=== PATIENT | male | born 1980 | race Caucasian/White ===

== ENCOUNTER → 2018-10-16 | Outpatient (CLI) | payer OTHER ==
--- NOTE | 2018-10-16 10:49 | Diagnostic Imaging Report ---
Indication: Right rib injury Three views of the right ribs show no displaced fractures. There are no effusions or pneumothoraces. Impression: Negative right ribs. Dictated by: Dictated on workstation # [id number]
== END ==
LOC: RAD 09:29
PROVIDERS: ATTEND Nurse Practitioner Family
DX: S29.9XXA Unspecified injury of thorax, initial encounter (principal)
CPT/HCPCS: 71100

== ENCOUNTER 2020-04-22 10:43 | Inpatient (IN) | payer BC, OTHER ==
[2020-04-22] VITALS (8 sets, daily range): BP systolic 113–139; BP diastolic 64–80
[~2020-04-22] VITALS: Ht 185 cm; Wt 98.0 kg
--- NOTE | 2020-04-22 11:10 | ED Dyspnea ---
General Stated Complaint: SOB COVID+ History of Present Illness Date Seen by Provider: Apr 22, 2020 Time Seen by Provider: 11:00 Initial Comments 39-year-old male presents with generalized malaise, shortness of breath. Patient is known COVID positive was symptoms starting approximately 7-9 days ago. Patient reports that initially services some headache denies malaise. Had a cough. Reports he was doing well but then last night he developed a fever and increasing shortness of breath today. Patient reports shortness of breath with activity. Patient is currently on steroids from urgent care. Allergies and Home Medications Patient Home Medication List Home Medication List Reviewed: Yes Review of Systems Review of Systems Constitutional: fever, malaise EENTM: no symptoms reported Respiratory: cough, short of breath Cardiovascular: No chest pain, No palpitations Gastrointestinal: No abdominal pain, No nausea, No vomiting Genitourinary: no symptoms reported Musculoskeletal: no symptoms reported Skin: no symptoms reported Psychiatric/Neurological: No Symptoms Reported Endocrine: No Symptoms Reported Past Quzwaxk-Yeaxom-Eozvhk Hx Past Med/Social Hx: Reviewed Nursing Past Med/Soc Hx Physical Exam Vital Signs Vital Signs - First Documented 04/22/20 10:55 Temp 37.0 Pulse 90 Resp 28 B/P (MAP) 136/104 (115) Pulse Ox 95 O2 Delivery Nasal Cannula O2 Flow Rate 2.00 Capillary Refill : Height, Weight, BMI Height: '" Weight: lbs. oz. kg; BMI Method: General Appearance: No Apparent Distress, WD/WN Respiratory: No Accessory Muscle Use, No Respiratory Distress, Decreased Breath Sounds (mild diffuse) Cardiovascular: Regular Rate, Rhythm, No Edema Extremity: Normal Capillary Refill, Normal Inspection, Normal Range of Motion Neurologic/Psychiatric: Alert, Oriented x3, No Motor/Sensory Deficits, Normal Mood/Affect, metal gauge maker II-XII Norm as Tested Skin: Normal Color, Warm/Dry Focused Exam Lactate Level 04/22/20 11:10: Lactic Acid Level 1.85 Lactic Acid Level Laboratory Tests Test 04/22/20 11:10 Lactic Acid Level 1.85 MMOL/L (0.50-2.00) Progress/Results/Core Measures Results/Orders Lab Results Laboratory Tests Test 04/22/20 00:00 04/22/20 11:10 Range/Units Prothrombin Time 12.7 12.2-14.7 SEC INR Comment 0.9 0.8-1.4 Activated Partial Thromboplast Time 23 L 24-35 SEC Fibrinogen 738 H 221-496 MG/DL White Blood Count 14.1 H 4.3-11.0 10^3/uL Red Blood Count 5.13 4.30-5.52 10^6/uL Hemoglobin 15.4 13.3-17.7 g/dL Hematocrit 47 40-54 % Mean Corpuscular Volume 91 80-99 fL Mean Corpuscular Hemoglobin 30 25-34 pg Mean Corpuscular Hemoglobin Concent 33 32-36 g/dL Red Cell Distribution Width 12.1 10.0-14.5 % Platelet Count 197 130-400 10^3/uL Mean Platelet Volume 11.6 9.0-12.2 fL Immature Granulocyte % (Auto) 0 % Neutrophils (%) (Auto) 91 H 42-75 % Lymphocytes (%) (Auto) 5 L 12-44 % Monocytes (%) (Auto) 4 0-12 % Eosinophils (%) (Auto) 0 0-10 % Basophils (%) (Auto) 0 0-10 % Neutrophils # (Auto) 12.8 H 1.8-7.8 10^3/uL Lymphocytes # (Auto) 0.7 L 1.0-4.0 10^3/uL Monocytes # (Auto) 0.6 0.0-1.0 10^3/uL Eosinophils # (Auto) 0.0 0.0-0.3 10^3/uL Basophils # (Auto) 0.0 0.0-0.1 10^3/uL Immature Granulocyte # (Auto) 0.1 0.0-0.1 10^3/uL Neutrophils % (Manual) 88 % Lymphocytes % (Manual) 5 % Monocytes % (Manual) 3 % Eosinophils % (Manual) 0 % Basophils % (Manual) 0 % Band Neutrophils 4 % Blood Morphology Comment NORMAL Sodium Level 134 L 135-145 MMOL/L Potassium Level 4.2 3.6-5.0 MMOL/L Chloride Level 100 98-107 MMOL/L Carbon Dioxide Level 20 L 21-32 MMOL/L Anion Gap 14 5-14 MMOL/L Blood Urea Nitrogen 13 7-18 MG/DL Creatinine 0.94 0.60-1.30 MG/DL Estimat Glomerular Filtration Rate > 60 BUN/Creatinine Ratio 14 Glucose Level 119 H 70-105 MG/DL Lactic Acid Level 1.85 0.50-2.00 MMOL/L Calcium Level 8.9 8.5-10.1 MG/DL Corrected Calcium 8.8 8.5-10.1 MG/DL Total Bilirubin 0.8 0.1-1.0 MG/DL Aspartate Amino Transf (AST/SGOT) 82 H 5-34 U/L Alanine Aminotransferase (ALT/SGPT) 205 H 0-55 U/L Alkaline Phosphatase 102 40-136 U/L Lactate Dehydrogenase 339 H 125-220 U/L C-Reactive Protein High Sensitivity 9.28 H 0.00-0.50 MG/DL Total Protein 7.8 6.4-8.2 GM/DL Albumin 4.1 3.2-4.5 GM/DL My Orders Orders - MARIANN HARKINS DO Vital Signs: Every 4 Hours (Or (04/22/20 11:10) Monitor-Rhythm Ecg Trace Only (04/22/20 11:10) Cbc With Automated Diff (04/22/20 11:10) Comprehensive Metabolic Panel (04/22/20 11:10) Ferritin (04/22/20 11:10) LDH (04/22/20 11:10) Hs C Reactive Protein (04/22/20 11:10) Troponin I (04/22/20 11:10) Lactic Acid Analyzer (04/22/20 11:10) Protime With Inr (04/22/20 11:10) Partial Thromboplastin Time (04/22/20 11:10) Fibrinogen (04/22/20 11:10) Ekg Tracing (04/22/20 11:10) Chest 1 View, Ap/Pa Only (04/22/20 11:10) Oxygen Delivery Set Up (04/22/20 11:10) Oxygen-Administer 07,19 (04/22/20 11:10) Manual Differential (04/22/20 11:10) Procalcitonin (Pct) (04/22/20 12:16) Vital Signs/I&O 04/22/20 10:55 Temp 37.0 Pulse 90 Resp 28 B/P (MAP) 136/104 (115) Pulse Ox 95 O2 Delivery Nasal Cannula O2 Flow Rate 2.00 Progress Progress Note : Time: 12:17 Progress Note Patient is requiring approximate 2 L of oxygen to keep his oxygen saturation in the mid upper 90s. Patient feels signally better while oxygen. We did attempt to wean which is oxygen drawback in the upper 80s low 90s. Patient will be admitted to Dr. Mart due to pneumonia, COVID. We will await pro calcitonin result to determine if antibiotics are warranted. Patient stable upon admission Initial ECG Impression Date: Apr 22, 2020 Initial ECG Impression Time: 11:29 Initial ECG Rate: 88 Initial ECG Rhythm: Normal Sinus Initial ECG Intervals: Normal Initial ECG Impression: Normal Diagnostic Imaging Diagonstic Imaging: Xray Plain Films/CT/US/NM/MRI: chest Comments [facility]. [place], [place] NAME: LOUISA GAYTAN [facility] REC#: [id number] PT STATUS: REG ER : 1980 PHYSICIAN: MARIANN HARKINS DO ADMIT DATE: 04/22/20/ER Draft Date of Exam:04/22/20 CHEST 1 VIEW, AP/PA ONLY INDICATION: Shortness of air. COMPARISON: None FINDINGS: Single frontal radiograph view of the chest was obtained and shows low inspiratory volumes with scattered patchy areas of alveolar opacity, most notable within the right perihilar and left lateral lung field. There is no large effusion or pneumothorax. Cardiac silhouette and pulmonary vasculature are within normal limits. Osseous structures show no gross acute abnormalities. IMPRESSION: 1. Low lung volumes with scattered patchy alveolar opacities concerning for infiltrate. Continued follow-up is advised. Dictated on workstation # [id number] Departure Communication (Admissions) Time/Spoke to Admitting Phy: 12:15 Okay to admit to fourth floor Impression Primary Impression: COVID-19 Additional Impression: Pneumonia Qualified Codes: J18.9 - Pneumonia, unspecified organism Disposition: ADMITTED INPATIENT Condition: Stable Admissions Decision to Admit Reason: Admit from ER (General) Decision to Admit/Date: Apr 22, 2020 Time/Decision to Admit Time: 12:10 Departure-Patient Inst. Referrals: MAHI MENESES MD (PCP/Family) Primary Care Physician MARIANN HARKINS DO Apr 22, 2020 11:10
[2020-04-22 11:31] LABS: BASOPHILS % (AUTO) 0 % (0-10); EOSINOPHILS % (AUTO) 0 % (0-10); HEMATOCRIT 47 % (40-54); HEMOGLOBIN 15.4 g/dL (13.3-17.7); LYMPHOCYTES # (AUTO) 0.7 10^3/uL (1.0-4.0); LYMPHOCYTES % (AUTO) 5 % (12-44); MEAN CORPUSCULAR HEMOGLOBIN 30 pg (25-34); MEAN CORPUSCULAR HGB CONC 33 g/dL (32-36); MEAN CORPUSCULAR VOLUME 91 fL (80-99); MEAN PLATELET VOLUME 11.6 fL (9.0-12.2); MONOCYTES # (AUTO) 0.6 10^3/uL (0.0-1.0); MONOCYTES % (AUTO) 4 % (0-12); NEUTROPHILS # (AUTO) 12.8 10^3/uL (1.8-7.8); NEUTROPHILS % (AUTO) 91 % (42-75); PLATELET COUNT 197 10^3/uL (130-400); WHITE BLOOD COUNT 14.1 10^3/uL (4.3-11.0)
--- NOTE | 2020-04-22 11:37 | Diagnostic Imaging Report ---
INDICATION: Shortness of air. COMPARISON: None FINDINGS: Single frontal radiograph view of the chest was obtained and shows low inspiratory volumes with scattered patchy areas of alveolar opacity, most notable within the right perihilar and left lateral lung field. There is no large effusion or pneumothorax. Cardiac silhouette and pulmonary vasculature are within normal limits. Osseous structures show no gross acute abnormalities. IMPRESSION: 1. Low lung volumes with scattered patchy alveolar opacities concerning for infiltrate. Continued follow-up is advised. Dictated by: Dictated on workstation # [id number]
[2020-04-22] MEDS ORDERED: DEXA6TAB PO (11:41)
[2020-04-22 11:44] LABS: ALBUMIN 4.1 GM/DL (3.2-4.5); CHLORIDE 100 MMOL/L (98-107); POTASSIUM 4.2 MMOL/L (3.6-5.0); SODIUM 134 MMOL/L (135-145)
[2020-04-22 11:45] LABS: CALCIUM 8.9 MG/DL (8.5-10.1)
[2020-04-22 11:46] LABS: GLUCOSE 119 MG/DL (70-105); TOTAL PROTEIN 7.8 GM/DL (6.4-8.2)
[2020-04-22 11:47] LABS: CARBON DIOXIDE 20 MMOL/L (21-32)
[2020-04-22 11:48] LABS: BILIRUBIN,TOTAL 0.8 MG/DL (0.1-1.0)
[2020-04-22 11:50] LABS: ALKALINE PHOSPHATASE 102 U/L (40-136); CREATININE SERUM 0.94 MG/DL (0.60-1.30); GFR ESTIMATED > 60
[2020-04-22 11:51] LABS: BUN/CREATININE RATIO 14
[2020-04-22 11:53] LABS: ALANINE AMINOTRANSFERASE 205 U/L (0-55)
[2020-04-22 11:57] LABS: BAND NEUTROPHILS 4 %; BASOPHILS % (MANUAL) 0 %; EOSINOPHILS % (MANUAL) 0 %; LYMPHOCYTES % (MANUAL) 5 %; MONOCYTES % (MANUAL) 3 %; NEUTROPHILS % (MANUAL) 88 %; RBC MORPH NORMAL
[2020-04-22 12:09] LABS: INR 0.9 (0.8-1.4); PROTHROMBIN TIME PATIENT 12.7 SEC (12.2-14.7)
--- NOTE | 2020-04-22 13:00 | NUR ---
LOUISA GAYTAN admitted to room 430-1, with an admitting diagnosis of covid 19, on 04/22/20 from [place] via [facility] ED via wheelchair, accompanied by staff.LOUISA GAYTAN introduced to surroundings, call light, bed controls, phone, TV, temperature control, lights, meal times, smoking policy, visitor policy, side rail policy, bathrooms and showers. Patient Rights given to patient in the handbook. LOUISA GAYTAN verbalizes understanding that [facility] is not responsible for the loss or damage to any personal effects or valuables that are kept in the patients posession during their hospitalization.
[2020-04-22] MEDS ORDERED: ACETAMINOPHEN 500 MG TAB (TYLENOL) PO PRN (13:15)
[2020-04-22] MEDS ORDERED: CATHETER FLUSH 10 ML SYR IV PRN (13:15)
--- NOTE | 2020-04-22 13:59 | History & Physical-Hospitalist ---
History of Present Illness HPI/Chief Complaint Pt is 39yoCM who presented to the ER due to ER due to chest tightness and shortness of breath. He developed a fever last week and had COVID testing done which was positive. He had been doing ok at home until two days ago when he developed worsening chest tightness. he is currently on day 7-8 of symptoms. He was started on decadron on 04/16 but continued to worsen. Arrival to the ER he was found to be hypoxic a 89% at rest. He is being admitted for hypoxic from COVID19. Source: patient Date Seen 04/22/20 Time Seen by a Provider: 13:47 Attending Physician Tara Kang MD PCP Veronica Preciado MD Referring Physician Date of Admission Apr 22, 2020 at 12:00 Home Medications & Allergies Home Medications Reviewed patient Home Medication Reconciliation performed by pharmacy medication reconciliations aerospace physiological technician and/or nursing. Patients Allergies have been reviewed. Allergies Allergies Coded Allergies No Known Drug Allergies ([id number]/17/20) Past Payessy-Gkixbi-Kzxlvu Hx Past Med/Social Hx: Reviewed Nursing Past Med/Soc Hx Patient Social History Marrital Status: Alcohol Use: Denies Use Recreational Drug Use: No Smoking Status: Never a Smoker Recent Foreign Travel: No Contact w/other who traveled: No Recent Hopitalizations: No Recent Infectious Disease Expo: No Immunizations Up To Date Date of Influenza Vaccine: Mar 06, 2020 Seasonal Allergies Seasonal Allergies: No Past Medical History History of Blood Disorders: No Family History Reviewed Nursing Family Hx No Pertinent Family Hx Review of Systems Constitutional: fever, malaise EENTM: no symptoms reported Respiratory: cough, short of breath Cardiovascular: no symptoms reported Gastrointestinal: no symptoms reported Genitourinary: no symptoms reported Musculoskeletal: no symptoms reported Skin: no symptoms reported Psychiatric/Neurological: No Symptoms Reported Physical Exam Physical Exam Vital Signs Vital Signs - First Documented 04/22/20 10:55 Temp 37.0 Pulse 90 Resp 28 B/P (MAP) 136/104 (115) Pulse Ox 95 O2 Delivery Nasal Cannula O2 Flow Rate 2.00 Capillary Refill : Less Than 3 Seconds Height, Weight, BMI Height: '" Weight: lbs. oz. kg; 28.63 BMI Method: General Appearance: No Apparent Distress, WD/WN HEENT: PERRL/EOMI, Moist Mucous Membranes; No Scleral Icterus (L), No Scleral Icterus (R) Neck: Normal Inspection, Supple Respiratory: Lungs Clear, No Accessory Muscle Use, Other (on 2lpm NC) Cardiovascular: Regular Rate, Rhythm, No Murmur Gastrointestinal: Normal Bowel Sounds, Non Tender, Soft Extremity: Normal Capillary Refill, No Calf Tenderness, No Pedal Edema Neurologic/Psychiatric: Alert, Oriented x3, Normal Mood/Affect Skin: Normal Color, Warm/Dry Results Results/Procedures Labs Laboratory Tests 04/22/20 11:10 04/23/20 05:15 Patient resulted labs reviewed. Imaging: Reviewed Imaging Report Imaging [facility]. [place], [place] NAME: LOUISA GAYTAN [facility] REC#: [id number] PT STATUS: REG ER : 1980 PHYSICIAN: MARIANN HARKINS DO ADMIT DATE: 04/22/20/ER Draft Date of Exam:04/22/20 CHEST 1 VIEW, AP/PA ONLY INDICATION: Shortness of air. COMPARISON: None FINDINGS: Single frontal radiograph view of the chest was obtained and shows low inspiratory volumes with scattered patchy areas of alveolar opacity, most notable within the right perihilar and left lateral lung field. There is no large effusion or pneumothorax. Cardiac silhouette and pulmonary vasculature are within normal limits. Osseous structures show no gross acute abnormalities. IMPRESSION: 1. Low lung volumes with scattered patchy alveolar opacities concerning for infiltrate. Continued follow-up is advised. Dictated on workstation # [id number] Dict: 04/22/20 1132 Trans: 04/22/20 1136 [id number] Interpreted by: WARD REAVES MD Electronically signed by: Assessment/Plan Admission Diagnosis Acute hypoxic respiratory failure from COVID19 Admission Status: Inpatient Order (span 2 midnights) Reason for Inpatient Admission: see below Assessment and Plan Acute hypoxic respiratory failure from COVID19 Transaminitis Currently on 2lpm to maintain oxygen saturation Within window for remdesivir so will start and monitor liver function but within threshold Decadron Convalescent plasma, discussed EUA status and patient agreeable Lovenox IS Procal negative so no indication for abx DVT ppx: Lovenox Diagnosis/Problems Diagnosis/Problems (1) Acute respiratory failure Qualifiers: Respiratory failure complication: hypoxia Qualified Codes: J96.01 - Acute respiratory failure with hypoxia (2) Transaminitis Status: Acute (3) COVID-19 Status: Acute Clinical Quality Measures DVT/VTE Risk/Contraindication: RFS Level Per Nursing on Admit: 0=No Risk/No VTE PPX TARA KANG MD Apr 22, 2020 13:59
[2020-04-22] MEDS ORDERED: MILK OF MAGNESIA 400 MG/5 ML 30 ML UDC PO PRN (14:00)
[2020-04-22] MEDS ORDERED: REMDESIVIR INJ 200 MG in NS (IVPB) 210 ML IV NR (14:00)
[2020-04-22] MEDS ORDERED: ANTACID SUSP 30 ML UDC (MYLANTA) PO PRN (14:00)
[2020-04-22] MEDS ORDERED: BENZONATATE 100 MG (TESSALON) CAPSULE PO PRN (14:00)
[2020-04-22] MEDS ORDERED: ONDANSETRON 4 MG/2 ML (SDV) Z0FRAN IV PRN (14:00)
[2020-04-22] MEDS: CATHETER FLUSH 10 ML SYR IV SCH ×2 (15:19→21:57)
[2020-04-22] MEDS: ENOXAPARIN 40 MG/0.4 ML (LOVENOX) SYR SQ SCH (15:19)
[2020-04-22] MEDS ORDERED: CHOL10007 PO (15:23)
[2020-04-22] MEDS ORDERED: ASCO500C17 PO (15:23)
[2020-04-22] MEDS ORDERED: ZINC50TA58 PO (15:23)
[2020-04-22] MEDS ORDERED: ACET-2267 PO (15:23)
--- NOTE | 2020-04-22 15:24 | NUR ---
SPOKE WITH THE PT (CALLED THE ROOM PHONE) AND WENT THRU THE EXT MED HISTORY TO COMPLETE THE MED REC ACCORDING TO THE PT HE NORMALLY DOESNT TAKE ANY PRESCRIPTION MEDICATIONS, BUT IS CURRENTLY TAKING DEXAMETHASONE 6MG DUE TO COVID OTC MEDS: TYLENOL VIT D VIT C ZINC
[2020-04-22] MEDS ORDERED: NS IV 500 ML 500 ML ONE (16:06)
--- NOTE | 2020-04-22 18:40 | NUR ---
Upon entering patients room to assess status and DC plasma patient is breathing rapidly. He states he is worried he is going to get really bad tonight like he has the last few. Patient has been laying in bed staring at the ceiling since admission. I assure patient that we will take good care of him. Informed Dr. Mart of patients status. orders Hydroxyzine 10mg PO TID PRN for anxiety. Order placed at this time.
[2020-04-22] MEDS: MELATONIN 3 MG TABLET PO PRN (20:40)
[2020-04-22] MEDS: ACETAMINOPHEN 325 MG TABLET PO PRN (20:41)
[2020-04-22] MEDS: hydrOXYzine (VISTARIL/ATARAX) 25 MG capsule/tablet PO PRN (20:41)
[2020-04-23] VITALS: BP 109/67
[2020-04-23 03:45] VITALS: BP 113/74
[2020-04-23] MEDS: CATHETER FLUSH 10 ML SYR IV SCH ×3 (05:28→22:07)
[2020-04-23 06:08] LABS: HEMOGLOBIN 13.8 g/dL (13.3-17.7); WHITE BLOOD COUNT 11.4 10^3/uL (4.3-11.0)
[2020-04-23 06:15] LABS: ALBUMIN 3.8 GM/DL (3.2-4.5); CHLORIDE 100 MMOL/L (98-107); POTASSIUM 4.4 MMOL/L (3.6-5.0); SODIUM 136 MMOL/L (135-145)
[2020-04-23 06:17] LABS: CALCIUM 8.9 MG/DL (8.5-10.1)
[2020-04-23 06:18] LABS: GLUCOSE 109 MG/DL (70-105); TOTAL PROTEIN 7.1 GM/DL (6.4-8.2)
[2020-04-23 06:19] LABS: CARBON DIOXIDE 23 MMOL/L (21-32)
[2020-04-23 06:20] LABS: BILIRUBIN,TOTAL 0.7 MG/DL (0.1-1.0)
[2020-04-23 06:21] LABS: ALKALINE PHOSPHATASE 105 U/L (40-136); CREATININE SERUM 0.85 MG/DL (0.60-1.30); GFR ESTIMATED > 60
[2020-04-23 06:22] LABS: BUN/CREATININE RATIO 19
[2020-04-23 06:24] LABS: ALANINE AMINOTRANSFERASE 191 U/L (0-55)
[2020-04-23 08:00] VITALS: BP 112/72
--- NOTE | 2020-04-23 08:57 | Physician Query Clarification ---
PQ-Conflicting Diagnosis Admission/Discharge Admission Date: Apr 22, 2020 at 12:00 Discharge Date: Dr. Mart, The medical record reflects the following clinical scenario: History/Risk Factors: COVID 19 Acute respiratory failure with hypoxia. Clinical Findings: 04/22 chest xray Impression: Low lung volumes with scattered patchy alveolar opacities concerning for infiltrates. Treatment:Remdesivir 200mg, IV Sodium chloride, Tessalon Perles. Question: Do you agree with the impression of the Pneumonia per Sammy Oliver DO, ED physician? If agree, is pneumonia, viral related to COVID 19? Please document a response in Progress Note or Discharge Summary. 1. Yes 2. No 3. Other, with explanation of clinical findings 4. Clinically undetermined, no explanation for clinical findings. PHYSICIAN RESPONSE Do you agree w/Consulting Dx?: Yes Please remember a lack of response to the above will prompt a phone page by CDI/Coding staff. In responding to this query, please exercise your independent professional judgment. The purpose of this communication is to more accurately reflect the complexity of your patients condition. The fact that a question is asked does not imply that any particular answer is desired or expected. Thank you for your timely response to this clarification. Requestors name: Devorah Logan [facility] THIS PHYSICIAN QUERY FORM IS A PERMANENT PART OF THE MEDICAL RECORD DEVORAH LOGAN Apr 23, 2020 08:57 TARA MART MD Apr 23, 2020 16:37
--- NOTE | 2020-04-23 09:52 | Progress Note - Hospitalist ---
Subjective HPI/CC On Admission Date Seen by Provider: Apr 23, 2020 Time Seen by Provider: 09:47 Pt is 39yoCM who presented to the ER due to ER due to chest tightness and shortness of breath. He developed a fever last week and had COVID testing done which was positive. He had been doing ok at home until two days ago when he developed worsening chest tightness. he is currently on day 7-8 of symptoms. He was started on decadron on 04/16 but continued to worsen. Arrival to the ER he was found to be hypoxic a 89% at rest. He is being admitted for hypoxic from COVID19. Subjective/Events-last exam Pt reports having a rough night due to recurrent fever. Now has some nasal bleeding from NC. Encourage OOB activity today. Focused Exam Lactate Level 04/22/20 11:10: Lactic Acid Level 1.85 Objective Exam Vital Signs Vital Signs Date Time Temp Pulse Resp B/P (MAP) Pulse Ox O2 Delivery O2 Flow Rate FiO2 04/23/20 08:41 94 Nasal Cannula 3.00 04/23/20 03:45 36.3 74 18 113/74 (87) Capillary Refill : Less Than 3 Seconds General Appearance: No Apparent Distress, WD/WN Respiratory: Lungs Clear, No Respiratory Distress Cardiovascular: Regular Rate, Rhythm, No Murmur Results/Procedures Lab Laboratory Tests 04/22/20 11:10 04/23/20 05:15 Patient resulted labs reviewed. Imaging: Reviewed Imaging Report Assessment/Plan Assessment and Plan Assess & Plan/Chief Complaint Acute hypoxic respiratory failure from COVID19 Transaminitis- improving Currently on 3lpm, wean as able Continue Remdesivir, decadron s/p 1 unit Convalescent plasma Lovenox IS Procal negative so no indication for abx Encourage OOB activity Discussed with RN and will use oxygen safe ointment for nose to lubricate it DVT ppx: Lovenox Diagnosis/Problems Diagnosis/Problems (1) Acute respiratory failure Qualifiers: Respiratory failure complication: hypoxia Qualified Codes: J96.01 - Acute respiratory failure with hypoxia (2) Transaminitis Status: Acute (3) COVID-19 Status: Acute Clinical Quality Measures DVT/VTE Risk/Contraindication: RFS Level Per Nursing on Admit: 0=No Risk/No VTE PPX TARA KANG MD Apr 23, 2020 09:52
[2020-04-23 12:00] VITALS: BP 111/72
[2020-04-23] MEDS: ENOXAPARIN 40 MG/0.4 ML (LOVENOX) SYR SQ SCH (14:38)
[2020-04-23] MEDS: REMDESIVIR INJ 100 MG in NS (IVPB) 230 ML IV SCH (14:38)
[2020-04-23 16:02] VITALS: BP 114/73
[2020-04-23 19:32] VITALS: BP 117/74
[2020-04-23] MEDS: ACETAMINOPHEN 325 MG TABLET PO PRN (21:38)
[2020-04-24] VITALS: BP 107/67
[2020-04-24 03:59] VITALS: BP 113/77
[2020-04-24] MEDS: CATHETER FLUSH 10 ML SYR IV SCH ×3 (06:01→20:44)
[2020-04-24 06:36] LABS: HEMOGLOBIN 14.1 g/dL (13.3-17.7); MEAN PLATELET VOLUME 11.1 fL (9.0-12.2); WHITE BLOOD COUNT 5.9 10^3/uL (4.3-11.0)
[2020-04-24 06:46] LABS: ALANINE AMINOTRANSFERASE 137 U/L (0-55); ALBUMIN 3.7 GM/DL (3.2-4.5); ALKALINE PHOSPHATASE 103 U/L (40-136); BILIRUBIN,TOTAL 0.6 MG/DL (0.1-1.0); BUN/CREATININE RATIO 24; CALCIUM 9.2 MG/DL (8.5-10.1); CARBON DIOXIDE 23 MMOL/L (21-32); CHLORIDE 102 MMOL/L (98-107); CREATININE SERUM 0.89 MG/DL (0.60-1.30); GFR ESTIMATED > 60; GLUCOSE 85 MG/DL (70-105); POTASSIUM 4.1 MMOL/L (3.6-5.0); SODIUM 138 MMOL/L (135-145)
[2020-04-24 08:00] VITALS: BP 133/72
--- NOTE | 2020-04-24 10:17 | Progress Note - Hospitalist ---
Subjective HPI/CC On Admission Date Seen by Provider: Apr 24, 2020 Time Seen by Provider: 10:16 Pt is 39yoCM who presented to the ER due to ER due to chest tightness and shortness of breath. He developed a fever last week and had COVID testing done which was positive. He had been doing ok at home until two days ago when he developed worsening chest tightness. he is currently on day 7-8 of symptoms. He was started on decadron on 04/16 but continued to worsen. Arrival to the ER he was found to be hypoxic a 89% at rest. He is being admitted for hypoxic from COVID19. Subjective/Events-last exam Pt reports feeling much better. No further fever. Up in chair. Focused Exam Lactate Level 04/22/20 11:10: Lactic Acid Level 1.85 Objective Exam Vital Signs Vital Signs Date Time Temp Pulse Resp B/P (MAP) Pulse Ox O2 Delivery O2 Flow Rate FiO2 04/24/20 09:05 93 Nasal Cannula 2.50 04/24/20 08:00 36.7 62 20 133/72 (92) Capillary Refill : Less Than 3 Seconds General Appearance: No Apparent Distress, WD/WN Respiratory: Lungs Clear, No Accessory Muscle Use, Other (on 2.5lpm) Cardiovascular: Regular Rate, Rhythm, No Murmur Gastrointestinal: Normal Bowel Sounds, Non Tender, Soft Neurologic/Psychiatric: Alert, Oriented x3 Results/Procedures Lab Laboratory Tests 04/24/20 05:45 Patient resulted labs reviewed. Imaging: Reviewed Imaging Report Assessment/Plan Assessment and Plan Assess & Plan/Chief Complaint Acute hypoxic respiratory failure from COVID19- improving Transaminitis- improving Currently on 2.5lpm, wean as able Continue Remdesivir, decadron s/p 1 unit Convalescent plasma Lovenox IS Procal negative so no indication for abx Encourage OOB activity DVT ppx: Lovenox Diagnosis/Problems Diagnosis/Problems (1) Acute respiratory failure Qualifiers: Respiratory failure complication: hypoxia Qualified Codes: J96.01 - Acute respiratory failure with hypoxia (2) Transaminitis Status: Acute (3) COVID-19 Status: Acute Clinical Quality Measures DVT/VTE Risk/Contraindication: RFS Level Per Nursing on Admit: 0=No Risk/No VTE PPX TARA KANG MD Apr 24, 2020 10:17
[2020-04-24 12:00] VITALS: BP 113/72
[2020-04-24] MEDS: REMDESIVIR INJ 100 MG in NS (IVPB) 230 ML IV SCH (13:25)
[2020-04-24] MEDS: ENOXAPARIN 40 MG/0.4 ML (LOVENOX) SYR SQ SCH (13:25)
[2020-04-24 16:00] VITALS: BP 111/74
[2020-04-24 20:00] VITALS: BP 117/72
[2020-04-24] MEDS: ACETAMINOPHEN 325 MG TABLET PO PRN (20:42)
[2020-04-24] MEDS: hydrOXYzine (VISTARIL/ATARAX) 25 MG capsule/tablet PO PRN (20:43)
[2020-04-24] MEDS: MELATONIN 3 MG TABLET PO PRN (20:43)
[2020-04-25] VITALS (7 sets, daily range): BP systolic 109–133; BP diastolic 63–75
[2020-04-25] MEDS: CATHETER FLUSH 10 ML SYR IV SCH ×3 (06:28→20:32)
[2020-04-25 06:40] LABS: HEMOGLOBIN 14.5 g/dL (13.3-17.7); WHITE BLOOD COUNT 5.6 10^3/uL (4.3-11.0)
[2020-04-25 06:51] LABS: ALBUMIN 3.7 GM/DL (3.2-4.5); CHLORIDE 103 MMOL/L (98-107); POTASSIUM 4.2 MMOL/L (3.6-5.0); SODIUM 138 MMOL/L (135-145)
[2020-04-25 06:53] LABS: CALCIUM 8.9 MG/DL (8.5-10.1)
[2020-04-25 06:54] LABS: GLUCOSE 92 MG/DL (70-105); TOTAL PROTEIN 7.2 GM/DL (6.4-8.2)
[2020-04-25 06:55] LABS: CARBON DIOXIDE 23 MMOL/L (21-32)
[2020-04-25 06:56] LABS: BILIRUBIN,TOTAL 0.5 MG/DL (0.1-1.0)
[2020-04-25 06:57] LABS: ALKALINE PHOSPHATASE 97 U/L (40-136)
[2020-04-25 06:58] LABS: CREATININE SERUM 0.94 MG/DL (0.60-1.30); GFR ESTIMATED > 60
[2020-04-25 06:59] LABS: BUN/CREATININE RATIO 21
[2020-04-25 07:00] LABS: ALANINE AMINOTRANSFERASE 103 U/L (0-55)
[2020-04-25] MEDS: ACETAMINOPHEN 325 MG TABLET PO PRN (11:47)
--- NOTE | 2020-04-25 12:07 | NUR ---
RT NOTIFIED OF MAT ORDER.
[2020-04-25] MEDS ORDERED: RT-ALBUTEROL INHALER HFA (VENTOLIN HFA) 18 GM IH PRN (12:45)
--- NOTE | 2020-04-25 13:41 | Progress Note - Hospitalist ---
Subjective HPI/CC On Admission Date Seen by Provider: Apr 25, 2020 Time Seen by Provider: 13:39 Pt is 39yoCM who presented to the ER due to ER due to chest tightness and shortness of breath. He developed a fever last week and had COVID testing done which was positive. He had been doing ok at home until two days ago when he developed worsening chest tightness. he is currently on day 7-8 of symptoms. He was started on decadron on 04/16 but continued to worsen. Arrival to the ER he was found to be hypoxic a 89% at rest. He is being admitted for hypoxic from COVID19. Subjective/Events-last exam Pt reports feeling short of breath still. Oxygen sats running in the high 90s but feels SOB without it. Encouraged continue OOB activity and IS use. Today [birth year] his birthday. Objective Exam Vital Signs Vital Signs Date Time Temp Pulse Resp B/P (MAP) Pulse Ox O2 Delivery O2 Flow Rate FiO2 04/25/20 13:10 96 Nasal Cannula 3.00 04/25/20 12:36 36.7 62 28 04/25/20 12:00 18 113/72 (86) Capillary Refill : Less Than 3 Seconds General Appearance: No Apparent Distress, WD/WN Respiratory: Lungs Clear, Other (on 3lpm) Cardiovascular: Regular Rate, Rhythm, No Murmur Gastrointestinal: Normal Bowel Sounds, Non Tender, Soft Neurologic/Psychiatric: Alert, Oriented x3 Results/Procedures Lab Laboratory Tests 04/25/20 06:18 Patient resulted labs reviewed. Imaging: Reviewed Imaging Report Assessment/Plan Assessment and Plan Assess & Plan/Chief Complaint Acute hypoxic respiratory failure from COVID19- improving Transaminitis- improving Currently on 3lpm, wean as able Continue Remdesivir, decadron s/p 1 unit Convalescent plasma Lovenox IS Procal negative so no indication for abx Encourage OOB activity D-dimer negative today DVT ppx: Lovenox Diagnosis/Problems Diagnosis/Problems (1) Acute respiratory failure Qualifiers: Respiratory failure complication: hypoxia Qualified Codes: J96.01 - Acute respiratory failure with hypoxia (2) Transaminitis Status: Acute (3) COVID-19 Status: Acute Clinical Quality Measures DVT/VTE Risk/Contraindication: RFS Level Per Nursing on Admit: 0=No Risk/No VTE PPX TARA KANG MD Apr 25, 2020 13:41
[2020-04-25] MEDS: ENOXAPARIN 40 MG/0.4 ML (LOVENOX) SYR SQ SCH (14:33)
[2020-04-25] MEDS: REMDESIVIR INJ 100 MG in NS (IVPB) 230 ML IV SCH (14:34)
[2020-04-25] MEDS ORDERED: guaiFENesin/CODEINE (ROBITUSSIN AC) 10ML UDC PO PRN (18:30)
[2020-04-25] MEDS: RT-ALBUTEROL INHALER HFA (VENTOLIN HFA) 18 GM IH SCH (20:12)
[2020-04-25] MEDS: MELATONIN 3 MG TABLET PO PRN (20:31)
[2020-04-26 00:28] VITALS: BP 116/70
[2020-04-26] MEDS: RT-ALBUTEROL INHALER HFA (VENTOLIN HFA) 18 GM IH SCH ×2 (02:04→09:00)
[2020-04-26 04:52] VITALS: BP 114/72
[2020-04-26] MEDS: CATHETER FLUSH 10 ML SYR IV SCH ×2 (06:05→13:40)
[2020-04-26 06:35] LABS: HEMOGLOBIN 14.9 g/dL (13.3-17.7); MEAN PLATELET VOLUME 10.5 fL (9.0-12.2); WHITE BLOOD COUNT 6.5 10^3/uL (4.3-11.0)
[2020-04-26 06:46] LABS: ALBUMIN 3.8 GM/DL (3.2-4.5); CHLORIDE 104 MMOL/L (98-107); POTASSIUM 4.4 MMOL/L (3.6-5.0); SODIUM 140 MMOL/L (135-145)
[2020-04-26 06:47] LABS: CALCIUM 8.9 MG/DL (8.5-10.1)
[2020-04-26 06:48] LABS: GLUCOSE 98 MG/DL (70-105); TOTAL PROTEIN 7.3 GM/DL (6.4-8.2)
[2020-04-26 06:49] LABS: CARBON DIOXIDE 22 MMOL/L (21-32)
[2020-04-26 06:50] LABS: BILIRUBIN,TOTAL 0.5 MG/DL (0.1-1.0)
[2020-04-26 06:52] LABS: ALKALINE PHOSPHATASE 95 U/L (40-136); CREATININE SERUM 0.94 MG/DL (0.60-1.30); GFR ESTIMATED > 60
[2020-04-26 06:53] LABS: BUN/CREATININE RATIO 17
[2020-04-26 06:55] LABS: ALANINE AMINOTRANSFERASE 96 U/L (0-55)
[2020-04-26 07:40] VITALS: BP 108/60
--- NOTE | 2020-04-26 08:30 | NUR ---
PATIENT DECREASED FROM 3L TO 1L. SPO2 97%@ 1L VIA NC. DENIES C/O. STATES, " I FEEL A LOT BETTER TODAY." DECREASE AERATION NOTED IN RIGHT LOBE. PATIENT ACCURATELY CORRECT DEMONSTRATION OF I.S. USE AND VERBALIZES DOING ON OWN EVERY HOUR. DENIES NNEDS OR C/O AT THIS TIME. CONT TO MONITOR.
--- NOTE | 2020-04-26 09:10 | NUR ---
SPO2 96% ON 1L O2 VIA NC. CONT TO MONITOR. NO NEEDS OR C/O AT THIS TIME.
[2020-04-26 11:10] VITALS: BP 125/73
[2020-04-26] MEDS ORDERED: ALBU18HF2 IH (11:19)
--- NOTE | 2020-04-26 11:25 | Discharge Inst-Simple/Standard ---
Discharge Inst-Standard Patient Instructions/Follow Up Plan of Care/Instructions/FU: Please continue to take your medications as written. Please follow up with your primary care doctor to follow up this hospital stay. Activity as Tolerated: Yes Discharge Diet: No Restrictions Return to The Hospital For: Chest pain, shortness of breath, abdominal pain, fever, difficulty breathing, if you feel you are getting worse. TARA KANG MD Apr 26, 2020 11:25
--- NOTE | 2020-04-26 11:36 | Discharge Summary ---
Diagnosis/Chief Complaint Date of Admission Apr 22, 2020 at 12:00 Date of Discharge Discharge Date: Apr 26, 2020 Admission Diagnosis Acute hypoxic respiratory failure from COVID19 Primary Care Mahi Preciado MD Discharge Diagnosis (1) Acute respiratory failure (2) Transaminitis Status: Acute (3) COVID-19 Status: Acute Discharge Summary Discharge Physical Exam Allergies: Coded Allergies: No Known Drug Allergies (Unverified , 04/22/20) Vitals & I&Os Vital Signs Date Time Temp Pulse Resp B/P (MAP) Pulse Ox O2 Delivery O2 Flow Rate FiO2 04/26/20 15:57 36.4 100 18 125/73 92 Room Air 04/26/20 11:10 1.00 04/25/20 12:36 28 General Appearance: No Apparent Distress, WD/WN Respiratory: Lungs Clear; No Crackles, No Wheezing Cardiovascular: Regular Rate, Rhythm, No Murmur Gastrointestinal: Normal Bowel Sounds, Soft Neurologic/Psychiatric: Alert, Oriented x3 Hospital Course Patient was admitted with acute hypoxic respiratory failure due to COVID-19. He was treated with Decadron, convalescent plasma, and Remdesivir. He did well and was able to be titrated off of oxygen completely. he was discharged home in stable and improved condition to follow-up with his primary care provider. Labs (last 24 hrs) Patient resulted labs reviewed. Pending Labs Imaging: Reviewed Imaging Report Discussion & Recommendations Discharge Planning: >30 minutes discharge planning Discharge Home Medications: Active Scripts Active Ventolin Hfa (Albuterol Sulfate) 18 Gm Hfa.aer.ad 0 Gm IH RTQ6HR Reported Vitamin D3 (Cholecalciferol (Vitamin D3)) 25 Mcg Capsule 25 Mcg PO DAILY Vitamin C (Ascorbic Acid) 500 Mg Capsule 500 Mg PO DAILY Zinc 50 Mg Tablet 50 Mg PO DAILY Tylenol Extra Strength (Acetaminophen) 500 Mg Tablet 500-1,000 Mg PO Q8H PRN Dexamethasone 6 Mg Tablet 6 Mg PO DAILY Instructions to patient/family Please see electronic discharge instructions given to patient. Clinical Quality Measures DVT/VTE Risk/Contraindication: RFS Level Per Nursing on Admit: 0=No Risk/No VTE PPX Copy Copies To 1: MAHI PRECIADO MD Problem Qualifiers (1) Acute respiratory failure: Respiratory failure complication: hypoxia Qualified Codes: J96.01 - Acute respiratory failure with hypoxia TARA KANG MD Apr 26, 2020 11:36
--- NOTE | 2020-04-26 13:18 | NUR ---
PATIENT WALKED 240 FEET ON ROOM AIR SAT 92% HEART RATE 110 DID NOT NEED OXYGEN AT THIS TIME Addendum: 04/26/20 at 1318 by JOSE MARQUEZ RT Amended: Links added.
[2020-04-26] MEDS: ENOXAPARIN 40 MG/0.4 ML (LOVENOX) SYR SQ SCH (13:40)
[2020-04-26] MEDS: REMDESIVIR INJ 100 MG in NS (IVPB) 230 ML IV SCH (13:40)
[2020-04-26 15:31] VITALS: BP 125/73
--- NOTE | 2020-04-26 15:31 | NUR ---
LOUISA GAYTAN demonstrates understanding of discharge instructions and accurately returns instructions upon questioning. Copy of Post-Discharge Instructions and Medication Discharge Instructions given to PATIENT. LOUISA GAYTAN is not able to manage continuing needs after discharge. Patients belongings returned to PATIENT. Skin dry and intact; no breakdown noted. Patient discharged from [facility] on 04/26/20 at 1531. LOUISA GAYTAN left floor via WC, accompanied by STAFF. Sp02 taken prior to d/c 88% and rebounded to 92% with deep breaths . Dr pro notified and patietn is still ok to be d/juan a. patient is asymptomatic and no SOA noted with exertion.
[2020-04-26 15:57] VITALS: BP 125/73
== END 2020-04-26 15:35 | disposition home or self-care (01) | DRG 177 ==
LOC: EDUNIT# 10:43 → ER 10:46 → 4TH 12:00
PROVIDERS: ADMIT Family Medicine; ATTEND Family Medicine
PROC: XW033E5 Introduction of Remdesivir Anti-infective into Peripheral Vein, Percutaneous Approach, New Technology Group 5 (ICD-10-PCS; principal; 2020-04-22)
PROC: XW13325 Transfusion of Convalescent Plasma (Nonautologous) into Peripheral Vein, Percutaneous Approach, New Technology Group 5 (ICD-10-PCS; 2020-04-22)
DX: U07.1 COVID-19 (principal); J96.01 Acute respiratory failure with hypoxia; J12.89 Other viral pneumonia; R74.01 Elevation of levels of liver transaminase levels
CPT/HCPCS: 36415; 71045; 80053; 82728; 83605; 83615; 84145; 84484; 85007; 85027; 85379; 85384; 85610; 85730; 86141; 86900; 86901; 93005; 93041; 94640; 94664; 94760; 94761